=== PATIENT | male | born 1990 | race Caucasian/White ===

== ENCOUNTER 2018-02-11 09:52 | Emergency (ER) | payer OTHER ==
[~2018-02-11] VITALS: Ht 172.7 cm; Wt 97.5 kg
[2018-02-11] MEDS ORDERED: ADDERALL 12.512.5 MG PO (10:07)
[2018-02-11 10:23] LABS: HEMATOCRIT 41.2 % (42.0-52.0); HEMOGLOBIN 14.7 gm/dL (14.0-18.0); MCH 31.3 pg (26.0-34.0); MCHC 35.6 g/dL (28.0-37.0); MCV 87.7 fL (80.0-100.0); RBC 4.7 mil/uL (4.50-6.00); RDW 12.7 % (10.5-14.5); WBC 7.5 thou/uL (4.0-11.0)
[2018-02-11 10:32] LABS: CALCIUM 9.5 mg/dL (8.5-10.1)
[2018-02-11 10:37] LABS: ALBUMIN 4.1 g/dL (3.4-5.0); TOTAL BILIRUBIN 0.5 mg/dL (<0.1-1.0); TOTAL PROTEIN 7.3 g/dL (6.4-8.2)
[2018-02-11 11:03] LABS: URINE BILIRUBIN NEGATIVE (Negative); URINE BLOOD NEGATIVE (Negative); URINE CLARITY CLEAR; URINE COLOR YELLOW; URINE GLUCOSE-RANDOM* NEGATIVE (Negative); URINE KETONES NEGATIVE (Negative); URINE LEUKOCYTES NEGATIVE (Negative); URINE NITRITE NEGATIVE (Negative); URINE PROTEIN (DIPSTICK) NEGATIVE (Negative); URINE SPECIFIC GRAVITY 1.025 (1.005-1.035); URINE UROBILINOGEN 0.2 E.U./dl (0.2-1.0)
[2018-02-11] MEDS ORDERED: PEPCID20 MG PO (11:09)
[2018-02-11] MEDS ORDERED: CARAFATE 1 GM TA1 G1 PO (11:09)
[2018-02-11 11:36] VITALS: BP 129/70
== END 2018-02-11 11:53 | disposition home or self-care (01) ==
LOC: ER 09:52
PROVIDERS: Physician Assistant
DX: K29.00 Acute gastritis without bleeding (principal); K80.50 Calculus of bile duct without cholangitis or cholecystitis without obstruction; F17.210 Nicotine dependence, cigarettes, uncomplicated